=== PATIENT | female | born 1945 | race Caucasian/White ===

== ENCOUNTER 2018-05-16 07:01 | Day surgery (SDC) | payer MEDICARE, MEDICAID ==
[~2018-05-16] VITALS: Ht 165.1 cm; Wt 68.0 kg
[~2018-05-16 07:01] MED LIST: ACETAMINOPHEN 325 MG TAB PO PRN; BALANCED SALT IRRIGATION SOLUTION 500ML BAG (FOR OR EYE MACHINE) As Ordered ONE; CEFUROXIME 1MG/0.1ML INTRACAMERAL INJ As Ordered ONE; CYCLOPENTOLATE 2% OPHTH SOLN 2ML BTL OD ONE; ENAL5TAB7 PO; HEALON DUET PRO(HEALON 10MG/ML 0.55ML & HEALON ENDOCOAT 30MG/ML 0.85ML) As Ordered ONE; LIDOCAINE 1% SDV 5 ML VIAL As Ordered ONE; LIDOCAINE 3.5 % 1ML OPHTH TOPICAL GEL OU ONE; LOVA40TA PO; OFLOXACIN 0.3 % (OCUFLOX) OPTH SOL 5ML OD ONE; PHENYLEPHRINE 2.5% OPHTH SOL 2ML OD ONE; PHENYLEPHRINE HCL 10 % OPHTH. SOL 5ML OD PRN; POVIDONE-IODINE 5% OPHTH PREP SOL 30ML As Ordered ONE; PROPARACAINE 0.5% OPHTH SOL 15ML OD PRN; TROPICAMIDE 1% OPHTH SOLN 2ML OD ONE
[2018-05-16] MEDS ORDERED: MIDAZOLAM INJ 2 MG/2 ML VIAL (J2250) As Ordered ONE (07:09)
[2018-05-16] MEDS ORDERED: AcetaZOLAMIDE 500 MG ER CAP PO ONE (09:00)
[2018-05-16] MEDS ORDERED: KETOROLAC 0.5% OPHTH SOLN OD ONE (09:00)
[2018-05-16] MEDS ORDERED: TRIMETHOBENZAMIDE 300 MG CAP PO PRN (09:00)
[2018-05-16 09:10] VITALS: BP 160/78
--- NOTE | 2018-05-16 10:16 | RO ---
DATE OF PROCEDURE: 05/16/2018 PREPROCEDURE DIAGNOSIS: Age-related nuclear cataract, right eye. POSTPROCEDURE DIAGNOSIS: Age-related nuclear cataract, right eye. PROCEDURE PERFORMED: Phacoemulsification with posterior chamber intraocular lens implantation and Optiwave Refractive Analysis (ORA). Lens used was an AU00T0, 26.0 diopter. SURGEON: Blessing Quiroz MD [employer] EXECUTIVE: ANESTHESIA: Topical with sedation. DESCRIPTION OF PROCEDURE: Patient was prepped and draped in usual fashion. A lid speculum was placed between the lids. The eye was fixated. A stab incision was made into the anterior chamber. 1% nonpreserved lidocaine was instilled. Then viscoelastic was instilled. The main incision was then opened with the incision lens grinder, and the anterior capsulorrhexis was removed, was performed by the laser. The lens was then rocked to remove any gas from behind it, and then it was freely movable in the capsular bag. The phacoemulsification unit was used to groove the nucleus in two meridians. The nucleus was cracked into four quadrants. Each quadrant was removed with the phacoemulsification unit. Any remaining cortex was removed with the irrigation and aspiration (I and A) unit. The capsular bag was refilled with viscoelastic, and then the intraocular pressure measured and found to be adequate for ORA. The ORA was lowered into place, focused on the apex of the cornea, and aligned to the patient. Readings were made, and an appropriate intraocular lens was chosen from the data generated by the ORA. The lens was then injected into the eye with its flatwork finisher hand and into the capsular bag. It was in great position. Any remaining viscoelastic was removed with the I and A unit. The wound was then hydrated, and balanced salt solution (BSS) and cefuroxime were instilled. Patient tolerated this procedure well and went to recovery room in stable condition.
== END 2018-05-16 09:15 | disposition home or self-care (01) ==
LOC: M SDC 07:01
PROVIDERS: ATTEND Ophthalmology
DX: H25.11 Age-related nuclear cataract, right eye (principal); I10 Essential (primary) hypertension; E78.5 Hyperlipidemia, unspecified; K21.9 Gastro-esophageal reflux disease without esophagitis; Z79.899 Other long term (current) drug therapy
CPT/HCPCS: 66984; 92015; J2250; V2632